=== PATIENT | female | born 1990 ===

== ENCOUNTER 2021-08-09 10:06 | Inpatient (IN) | payer BC ==
[~2021-08-09] VITALS: Ht 177.8 cm; Wt 102.7 kg
[2021-08-10] VITALS (28 sets, daily range): BP systolic 104–142; BP diastolic 60–80; PULSE 63–88; TEMP 98–98.8
--- NOTE | 2021-08-10 14:35 | NUR ---
Patient ambulatory to LR3 with spouse and mother, changed into gown, FHR/TOCO monitors applied. 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 Patient denies any regular contractions, decreased movement, vaginal bleeding, or leaking of fluid. Plan of care discussed. 1500: IV started in left wrist, blood obtained and to lab, IV flushed. Consents gone over, assessment completed.
[2021-08-10] MEDS ORDERED: ALBUTEROL SULFAT8 MG PO (14:59)
[2021-08-10] MEDS ORDERED: PRENATAL TABLET PO (15:00)
[2021-08-10] MEDS ORDERED: RT ADVAIR 228 DISKUS IH (15:00)
[2021-08-10] MEDS ORDERED: ZYRTEC 10MG10 MG PO (15:01)
[2021-08-10 15:46] LABS: BASO % 0.3 % (0.0-2.0); EOS # 0.2 K/mm3 (0.0-0.7); EOS % 3.5 % (0.0-4.0); GRAN % 73.8 % (42.2-75.2); HEMOGLOBIN 12.2 g/dl (12.5-16.0); LYMPH % 14.5 % (20.0-51.0); MEAN CELL VOLUME 91 fl (80.0-100.0); MEAN CORPUSCULAR HEMOGLOBIN 32 pg (27-31); MEAN CORPUSCULAR HGB CONC 35 g/dl (33.0-37.0); MONO # 0.5 K/mm3 (0.1-0.6); MONO % 7.2 % (1.7-9.3); PLATELET COUNT 156 K/mm3 (130-400); RED BLOOD COUNT 3.84 M/mm3 (4.10-5.30); REDCELL DISTRIBUTION WIDTH-CV 11.9 % (11.5-14.5)
--- NOTE | 2021-08-10 17:39 | NUR ---
173 - MD PATRICK AT BEDSIDE. PLAN OF CARE DISCUSSED. 1739 - SVE PERFORMED BY MD PATRICK. . 1744 - AROM PERFORMED BY MD PATRICK. PATIENT REPOSITIONED. PLAN OF CARE DISCUSSED. CARE ONGOING.
--- NOTE | 2021-08-10 20:35 | NUR ---
Standing at bedside, requesting epidural, LR to bolus, to bathroom.
--- NOTE | 2021-08-10 21:00 | NUR ---
Mart MOMIN int room for epidural placement. See anesthesia record. Pt moved to sit at edge of bed.
--- NOTE | 2021-08-10 22:28 | NUR ---
FHR with recurrent early decelerations, SVE / reports "feeling pressure but not much."
--- NOTE | 2021-08-10 22:45 | NUR ---
pt feeling increasing pressure. 2253 Dr Gunderson into room. Pt set up for delivery. [address] Gunderson. Family loving and supportive @ bedside.
--- NOTE | 2021-08-10 23:10 | NUR ---
Placneta delivers spont and intact with 3 vessell cord. Pitocin gtt to bolus rate. Brisk free flow lochia, fundal massage. 2313 Methergine 0.2mg IM to L ant thigh, 2315 brisk lochia continues. [address] Gunderson yields small placenta fragment. 2319 TXA 1 gram slow IV push 2325 Lochia mod without clots. Repair of bryant-clitoral tear in progress.. 2335 Repair complete, minimal lochia. pericare complete. ice pack to perineum, bed together.
[2021-08-11] VITALS (10 sets, daily range): BP systolic 106–128; BP diastolic 56–67; PULSE 60–83; TEMP 97.6–98
--- NOTE | 2021-08-11 | NUR ---
Emesis 300cc. Fundus firms with massage, small clots expressed. 88mls QBL
[2021-08-11 05:35] LABS: HEMOGLOBIN 10.5 g/dl (12.5-16.0)
[2021-08-11 05:40] LABS: HEMATOCRIT 30.2 % (37.0-47.0)
[2021-08-11 06:36] LABS: HIV 1/2 Antibodies Non-Reactive; HIV-1p24 Antigen Non-Reactive
--- NOTE | 2021-08-11 10:11 | NUR ---
Initial visit; Patient and her thanked [employer] for visit and blessings.
--- NOTE | 2021-08-11 15:55 | NUR ---
1030THIErin RN PROVIDED PATIENT WITH DOMINGUEZ BANDAGE TO HELP WITH BREAST COMPRESSION. PATIENT VEBRALIZED UNDERSTANDING AND ALSO ASSISTING WITH PLACING SO THAT HE CAN HELP WHEN THEY GO HOME. PATIENT EDUCATED ON STEPS TO TAKE AND HOW TO MANAGE LACATION AND TO STOP.
--- NOTE | 2021-08-11 16:48 | NUR ---
1645DISCHARGE INSTRUCTIONS REVIEWED WITH PATIENT. PATIENT VERBALIZED UNDERSTANDING AND THAT LOCHIA REMAINS WNL. IV DISCONTINUED. PATIENT WILL LET THIS RN KNOW WHEN SHE IS READY TO LEAVE.
--- NOTE | 2021-08-11 17:13 | NUR ---
1710ALL PERSONAL BELONGINGS GATHERED FROM PATIENT ROOM. PATIENT LEFT AMBULATORY AND IN NO APPARENT DISTRESS. PATIENT ACCOMPANIED BY SPOUSE AND THIS RN.
== END 2021-08-11 17:10 | disposition home or self-care (01) | DRG 768 ==
LOC: LDR 08-10 10:05 → OB 08-10 14:15
PROVIDERS: ADMIT Obstetrics & Gynecology
PROC: 10E0XZZ Delivery of Products of Conception, External Approach (ICD-10-PCS; principal; 2021-08-10)
PROC: 0UQJXZZ Repair Clitoris, External Approach (ICD-10-PCS; 2021-08-10)
PROC: 10D17ZZ Extraction of Products of Conception, Retained, Via Natural or Artificial Opening (ICD-10-PCS; 2021-08-10)
PROC: 3E033VJ Introduction of Other Hormone into Peripheral Vein, Percutaneous Approach (ICD-10-PCS; 2021-08-10)
PROC: 10907ZC Drainage of Amniotic Fluid, Therapeutic from Products of Conception, Via Natural or Artificial Opening (ICD-10-PCS; 2021-08-10)
DX: O99.824 Streptococcus B carrier state complicating childbirth (principal); Z37.0 Single live birth; O99.52 Diseases of the respiratory system complicating childbirth; J45.909 Unspecified asthma, uncomplicated; O72.1 Other immediate postpartum hemorrhage; O69.81X0 Labor and delivery complicated by cord around neck, without compression, not applicable or unspecified; O71.89 Other specified obstetric trauma; O72.2 Delayed and secondary postpartum hemorrhage; Z3A.39 39 weeks gestation of pregnancy
CPT/HCPCS: J2210; J2405; J2540; J2590; J7120